=== PATIENT | female | born 1960 ===

== ENCOUNTER 2019-11-30 11:13 | Emergency (ER) | payer SELFPAY ==
[2019-11-30 12:15] LABS: Absolute Lymphocytes (CBC) 2.6 K/uL (0.7-4.9); Basophils % 0.3 % (0-1.3); Hematocrit 37.3 % (36.0-45.0); Lymphocytes % 21.5 % (15.3-44.8); MPV 7.1 fL (7.6-11.3); RBC Red Blood Cell Count 4.27 M/uL (3.86-4.86)
[2019-11-30 12:19] LABS: Protime INR 1.04
[2019-11-30 12:45] LABS: Barbiturates NEGATIVE (NEGATIVE); Benzodiazepines NEGATIVE (NEGATIVE); Cocaine NEGATIVE (NEGATIVE); METHAMPHETAM NEGATIVE (NEGATIVE); Methadone NEGATIVE (NEGATIVE); Opiates NEGATIVE (NEGATIVE); Phencyclidine NEGATIVE (NEGATIVE); THC Cannibis NEGATIVE (NEGATIVE)
[2019-11-30 13:14] LABS: ALT/SGPT 21 U/L (12-78); AST/SGOT 14 U/L (15-37); Albumin 3.4 g/dL (3.4-5.0); Alkaline Phosphatase 82 U/L (45-117); BUN Blood Urea Nitrogen 8 mg/dL (7-18); Bicarbonate 26 mmol/L (21-32); Bilirubin Direct 0.1 mg/dL (0-0.2); Bilirubin Total 0.3 mg/dL (0.2-1.0); Glucose Level 97 mg/dL (74-106); Potassium 3.4 mmol/L (3.5-5.1); Protein, Total 7.3 g/dL (6.4-8.2); Sodium Level 138 mmol/L (136-145)
[2019-11-30 13:41] LABS: Urine Blood NEGATIVE (NEG); Urine Glucose NEGATIVE (NEG); Urine Protein NEGATIVE (NEG); Urine pH 5.5 (5.0-7.0)
--- NOTE | 2019-11-30 14:49 | ER ---
Nurse's Notes [facility] Name: Lindy Sweeney Age: 59 yrs Sex: Female : 1960 Arrival Date: 11/30/2019 Time: :18 Bed 16 Private MD: Diagnosis: Suicidal ideations Presentation: 11/30 11:34 Presenting complaint: Patient states: is thinking of killing herself since last night, iw plan is to hang herself, is currently at [facility] for Xanax abuse, stopped taking xanax on Oct 16, 2019 , previously was taking Suboxone and took herself off in September. Her mother dies in September, dog in Oct, states she has a lot of overwhelming personal problems and she can;t use the phone or computer while she's at [facility], feels frustrated, states she was recently at [facility] and crisis center for 5 days in Oct for SI. Transition of care: patient was not received from another setting of care. Onset of symptoms was November 29, 2019. Risk Assessment: Do you want to hurt yourself or someone else? Patient reports no desire to harm self or others. Initial Sepsis Screen: Does the patient meet any 2 criteria? No. Patient's initial sepsis screen is negative. Does the patient have a suspected source of infection? No. Patient's initial sepsis screen is negative. Care prior to arrival: None. 11:34 Method Of Arrival: Ambulatory iw 11:34 Acuity: MILLICENT 2 iw Triage Assessment: 12/02 07:00 General: Appears in no apparent distress. distressed, Behavior is calm, cooperative. bp Historical: - Allergies: 11/30 11:42 PENICILLINS; iw - Home Meds: 11:42 amitriptyline 50 mg Oral tab nightly [Active]; bupropion HCl 150 mg Oral TbER 1 tab iw once daily [Active]; Benadryl 50 mg Oral nightly [Active]; lisinopril 20 mg Oral tab 1 tab once daily [Active]; - PMHx: 11:42 None; iw - PSHx: 11:42 ; Cholecystectomy; iw - Immunization history:: Adult Immunizations not up to date. - Coronavirus screen:: The patient has NOT traveled to [place] in the past 14 days. Proceed with normal triage process as indicated. - Social history:: Smoking status: Patient denies any tobacco usage or history of. Patient/guardian denies using alcohol. - Family history:: not pertinent. - Ebola Screening: : Patient negative for fever greater than or equal to 101.5 degrees Fahrenheit, and additional compatible Ebola Virus Disease symptoms Patient denies exposure to infectious person Patient denies travel to an Ebola-affected area in the 21 days before illness onset No symptoms or risks identified at this time. - Hospitalizations: : No recent hospitalization is reported. Screenin:49 Abuse screen: Denies threats or abuse. Denies injuries from another. Nutritional ph screening: No deficits noted. Tuberculosis screening: No symptoms or risk factors identified. Fall Risk None identified. Assessment: 12:00 General: Appears in no apparent distress. comfortable, Behavior is cooperative, ph appropriate for age, anxious. Pain: Denies pain. Neuro: Level of Consciousness is awake, alert, obeys commands, Oriented to person, place, time, situation. Cardiovascular: Capillary refill < 3 seconds in bilateral fingers Patient's skin is warm and dry. Respiratory: Reports cough that is Airway is patent Respiratory effort is even, unlabored, Respiratory pattern is regular, symmetrical, Breath sounds are clear bilaterally. GI: No signs and/or symptoms were reported involving the gastrointestinal system. Derm: Skin is intact, Skin is pink, warm \\T\\ dry. 13:00 Reassessment: Patient appears in no apparent distress at this time. Patient and/or ph family updated on plan of care and expected duration. Pain level reassessed. Patient is alert, oriented x 3, equal unlabored respirations, skin warm/dry/pink. 14:00 Reassessment: Patient appears in no apparent distress at this time. Patient and/or ph family updated on plan of care and expected duration. Pain level reassessed. Patient is alert, oriented x 3, equal unlabored respirations, skin warm/dry/pink. 15:31 Reassessment: belongings list verified with PJ, belongings sent with security. iw 15:48 Reassessment: [facility] screener at bedside to speak w/ pt. ph 17:00 Reassessment: Patient appears in no apparent distress at this time. Patient and/or ph family updated on plan of care and expected duration. Pain level reassessed. Patient is alert, oriented x 3, equal unlabored respirations, skin warm/dry/pink. 18:00 Reassessment: Patient appears in no apparent distress at this time. Patient and/or ph family updated on plan of care and expected duration. Pain level reassessed. Patient is alert, oriented x 3, equal unlabored respirations, skin warm/dry/pink. 12/01 03:00 Reassessment: Patient appears in no apparent distress at this time. Patient and/or wh family updated on plan of care and expected duration. Pain level reassessed. Patient is alert, oriented x 3, equal unlabored respirations, skin warm/dry/pink. Pt sleeping well no signs of distress noted. 07:00 Reassessment: pt appears to be sleeping at this time. tw2 08:33 Reassessment: Patient is alert, oriented x 3, equal unlabored respirations, skin tw2 warm/dry/pink. pt sitting up eating breakfast at this time.,NAD. 09:00 Reassessment: Patient appears in no apparent distress at this time. Patient and/or tw2 family updated on plan of care and expected duration. Pain level reassessed. Patient is alert, oriented x 3, equal unlabored respirations, skin warm/dry/pink. 10:00 Reassessment: Patient appears in no apparent distress at this time. Patient and/or tw2 family updated on plan of care and expected duration. Pain level reassessed. Patient is alert, oriented x 3, equal unlabored respirations, skin warm/dry/pink. 11:00 Reassessment: Patient appears in no apparent distress at this time. Patient and/or tw2 family updated on plan of care and expected duration. Pain level reassessed. Patient is alert, oriented x 3, equal unlabored respirations, skin warm/dry/pink. 12:00 Reassessment: Patient appears in no apparent distress at this time. Patient and/or tw2 family updated on plan of care and expected duration. Pain level reassessed. Patient is alert, oriented x 3, equal unlabored respirations, skin warm/dry/pink. 13:00 Reassessment: Patient appears in no apparent distress at this time. Patient and/or tw2 family updated on plan of care and expected duration. Pain level reassessed. Patient is alert, oriented x 3, equal unlabored respirations, skin warm/dry/pink. 14:00 Reassessment: Patient appears in no apparent distress at this time. Patient and/or tw2 family updated on plan of care and expected duration. Pain level reassessed. Patient is alert, oriented x 3, equal unlabored respirations, skin warm/dry/pink. 15:00 Reassessment: Patient appears in no apparent distress at this time. Patient and/or jl7 family updated on plan of care and expected duration. Pain level reassessed. Patient is alert, oriented x 3, equal unlabored respirations, skin warm/dry/pink. Pt reports coughing for 10 days, "I think I got it from my roommate." requesting something for the cough, ERD notified, see MAR for orders Patient denies pain at this time. 16:00 Reassessment: Patient appears in no apparent distress at this time. Patient and/or jl7 family updated on plan of care and expected duration. Pain level reassessed. Patient is alert, oriented x 3, equal unlabored respirations, skin warm/dry/pink. Patient states feeling better. 17:00 Reassessment: Patient appears in no apparent distress at this time. No changes from jl7 previously documented assessment. Patient and/or family updated on plan of care and expected duration. Pain level reassessed. Patient is alert, oriented x 3, equal unlabored respirations, skin warm/dry/pink. 19:10 General: Appears in no apparent distress. comfortable, Behavior is calm, cooperative, rr5 appropriate for age, presence of sitter noted. awaiting for mental facility acceptance.. Pain: Denies pain. Neuro: Level of Consciousness is awake, alert, obeys commands, Oriented to person, place, time, situation. Cardiovascular: Capillary refill < 3 seconds Patient's skin is warm and dry. Respiratory: Airway is patent Respiratory effort is even, unlabored, Respiratory pattern is regular, symmetrical. GI: No signs and/or symptoms were reported involving the gastrointestinal system. : No signs and/or symptoms were reported regarding the genitourinary system. EENT: No signs and/or symptoms were reported regarding the EENT system. Derm: Skin is intact, Skin is pink, warm \\T\\ dry. Musculoskeletal: Circulation, motion, and sensation intact. Capillary refill < 3 seconds. 20:00 Reassessment: Patient appears in no apparent distress at this time. Patient is alert, rr5 oriented x 3, equal unlabored respirations, skin warm/dry/pink. complaining of nausea, ED provider aware with order made and carried out. 21:00 Reassessment: Patient appears in no apparent distress at this time. Patient is alert, rr5 oriented x 3, equal unlabored respirations, skin warm/dry/pink. Patient states feeling better. Patient states symptoms have improved. 23:00 Reassessment: Patient appears in no apparent distress at this time. No changes from rr5 previously documented assessment. 12/02 00:00 Reassessment: Patient appears in no apparent distress at this time. resting eyes closed rr5 breathing spontaneously at room air. 02:41 Reassessment: Patient appears in no apparent distress at this time. No changes from rr5 previously documented assessment. 04:00 Reassessment: Patient appears in no apparent distress at this time. No changes from wh previously documented assessment. Patient and/or family updated on plan of care and expected duration. Pain level reassessed. Patient is alert, oriented x 3, equal unlabored respirations, skin warm/dry/pink. Pt sleeping well no signs of distress noted. 06:00 Reassessment: Patient appears in no apparent distress at this time. No changes from wh previously documented assessment. Patient and/or family updated on plan of care and expected duration. Pain level reassessed. Patient is alert, oriented x 3, equal unlabored respirations, skin warm/dry/pink. 07:00 Reassessment: RECD REPORT FROM AMINATA STEWART. 59YO WF P/W SUICIDAL IDEATION 2/2 DETOX FROM bp [facility] AT [facility]. PT MEDICALLY CLEARED, PSYCH TRANSFER INITIATED. 09:17 Reassessment: PT PROVIDED BREAKFAST TRAY BUT DECLINING TO EAT AT THIS TIME. bp 10:55 Reassessment: PSYCH MD AT B/S. bp 13:00 Reassessment: PT PROVIDED LUNCH. INPATIENT TRANSFER IN PROCESS. bp 17:00 Reassessment: PER [facility], PLACEMENT POSSIBLE TOMORROW. PT CALM AND COOPERATIVE, EATING bp DINNER. 19:55 General: Appears in no apparent distress. comfortable, Behavior is calm, cooperative, fu appropriate for age, awaiting acceptance to psychiatric facilty. Pain: Denies pain. Neuro: Level of Consciousness is awake, alert, obeys commands, Oriented to person, place, time, situation. Cardiovascular: Capillary refill < 3 seconds Patient's skin is warm and dry. Respiratory: Reports cough that is Respiratory effort is even, unlabored, Respiratory pattern is regular, Breath sounds are clear bilaterally. GI: Reports nausea. : No signs and/or symptoms were reported regarding the genitourinary system. EENT: No signs and/or symptoms were reported regarding the EENT system. Derm: Skin is intact, Skin is pink, warm \\T\\ dry. Musculoskeletal: Capillary refill < 3 seconds. 20:10 Reassessment: Patient complaining of nausea, Dr. Hagan notified. fu 21:29 Reassessment: Patient refuse to take Zofran and Seroquel. notified. fu 22:08 Reassessment: patient asked for snacks, seems upset for not able to get Phenergan for fu nausea. 22:58 Reassessment: Patient appears in no apparent distress at this time. Patient is alert, fu oriented x 3, equal unlabored respirations, skin warm/dry/pink. awake lying in bed. 23:09 Reassessment: Reassessment: Patient and/or family updated on plan of care and expected fu duration. Pain level reassessed. Patient is alert, oriented x 3, equal unlabored respirations, skin warm/dry/pink. patient resting in bed, quite and calm. 12/03 00:01 Reassessment: No changes from previously documented assessment. Patient and/or family fu updated on plan of care and expected duration. Pain level reassessed. Patient is alert, oriented x 3, equal unlabored respirations, skin warm/dry/pink. 01:40 Reassessment: No changes from previously documented assessment. patient resting in bed fu quietly, eyes close, seems asleep. 02:48 Reassessment: Patient appears in no apparent distress at this time. No changes from fu previously documented assessment. 03:48 Reassessment: Patient appears in no apparent distress at this time. Sitter at bedside. lp1 Nurse to Nurse report given to TERRY Fournier at [facility]. 04:43 Reassessment: No changes from previously documented assessment. Patient and/or family fu updated on plan of care and expected duration. Pain level reassessed. Patient is alert, oriented x 3, equal unlabored respirations, skin warm/dry/pink. 05:29 Reassessment: Patient appears in no apparent distress at this time. Reassessment: lp1 Patient aware of transfer to [facility], transfer consent signed by patient; Patient concerned about jacket and some other clothing left at [facility], will attempt to call for update on patient's belongings. General: Behavior is calm, cooperative. 05:31 Reassessment: Spoke with staff member at [facility], states he will see what he can do lp1 about getting patient's belonging to her. 06:47 Reassessment: EMS at bedside for transfer. Reassessment: [facility] staff arrived lp1 with patient's belongings. security at bedside to return patient belongings. Psych: 11/30 12:30 Subjective: Patient's mood is sad, hopeless, Delusions are denied, Hallucinations are ph denied Having thoughts of suicide. Objective: Patient is cooperative, Speech is normal, Affect is appropriate. Interventions: Removed personal items and placed in bag. Patient placed in hospital gown. Searched person for dangerous items. Urine collected and sent for urine drug test. Belonging list filled out. Suicide Risk Assessment: Sad Person Scale: Sex of patient: Female: Score 0 points. Age of patient: Score 0 point if patient falls outside of specified age parameters. Depression: Score 1 point if signs of depression are present. Previous Attempt: Score 1 point if patient has previously attempted suicide. Substance Abuse: Score 0 point if patient does not abuse alcohol or drugs. Rational Thinking: Score 0 point if patient has rational thinking. Social Support: Score 1 point if social support is lacking and/or unavailable. Organized Plan: Score 1 point if patient had a plan in place. Relationship: Score 1 point if patient is , , , or for a single male Chronic Sickness: Score 0 point if patient does not have a chronic illness, debilitating, or severe disorder. TOTAL POINTS: If total points are 5-6, proposed clinical action is to strongly consider hospitalization, depending upon confidence in the follow-up arrangement. Implement suicide precautions. Safety Checks: Personal items have been removed. Door is open. No visitors are present at this time. Pt denies substance abuse. Commitment: Patient will be a voluntary commitment. Vital Signs: 11:42 Weight 65.32 kg; Height 5 ft. 2 in. (157.48 cm); Pain 7/10; iw 11:49 BP 134 / 94; Pulse 89; Resp 16; Temp 98.3(O); Pulse Ox 98% on R/A; ph 20:18 BP 127 / 82; Pulse 74; Resp 16; Pulse Ox 97% on R/A; mt 12/01 06:21 BP 140 / 86; Pulse 77; Resp 16; Temp 98.4(O); Pulse Ox 98% on R/A; mt 17:18 BP 112 / 79; Pulse 81; Resp 16; Temp 98.2(TE); Pulse Ox 97% on R/A; mh5 12/02 06:05 BP 115 / 75 RA; Pulse 83 RA; Resp 16; Pulse Ox 95% on R/A; cs8 10:34 BP 109 / 65 RA Supine; Pulse 76; Resp 16; Temp 98.7(O); Pulse Ox 96% on R/A; bp 14:00 BP 111 / 72; Pulse 73; Resp 17; Temp 98.5; Pulse Ox 95% ; bp 18:00 BP 121 / 81; Pulse 69; Resp 17; Temp 98.5; Pulse Ox 96% ; bp 20:20 BP 132 / 79; Pulse 75; Resp 16; Temp 99.3(O); Pulse Ox 97% on R/A; Pain 0/10; fu 12/03 04:44 BP 138 / 87; Pulse 84; Resp 18; Temp 98.2(O); Pulse Ox 97% on R/A; Pain 0/10; fu 11/30 11:42 Body Mass Index 26.34 (65.32 kg, 157.48 cm) iw ED Course: 11/30 11:18 Patient arrived in ED. ag5 11:25 Dwaine Benitez MD is Attending Physician. rn 11:39 Triage completed. iw 11:42 Arm band placed on. iw 11:47 Maryanne Jane, TERRY is Primary Nurse. ph 12:01 EKG done, by pharmacy technician infusion. reviewed by Dwaine Benitez MD. at1 12:15 Inserted saline lock: 22 gauge in left antecubital area, using aseptic technique. ph 14:[address] [facility] psych center. dh4 14:[address] [facility] for screener evaluation for pt. dh4 14:26 faxed chart to [facility] ,[facility], [facility]. 14:[address] [facility]. bd 16:14 faxed [facility] evaluation to [facility]. pt is currently on waiting list at [facility]. 19:04 Taya Jesus FNP-C is PHCP. snw 19:29 No provider procedures requiring assistance completed. ph 19:32 Patient has correct armband on for positive identification. Placed in gown. Bed in low ph position. Call light in reach. Side rails up X 1. Pulse ox on. NIBP on. Lights dimmed. Warm blanket given. Pillow given. 12/01 07:04 Primary Nurse role handed off by Maryanne Jane, TERRY tw2 07:04 Laly Goncalves, TERRY is Primary Nurse. tw2 08:30 Diet: Patient given a regular meal tray. 5 09:[address]ne [address] [facility], they have no beds at this time. bd 10:41 talked to Maryanne at [facility], pt is still on waiting list, no [facility] beds, no discharges expected until tomorrow. 11:30 Diet: Patient given a regular meal tray. mh5 15:13 Diet: Patient given ice chips. Patient given juice. mh5 16:30 Diet: Patient given a regular meal tray. 5 17:26 Basic Metabolic Panel Sent. jl7 17:26 Acetaminophen Sent. jl7 19:00 Safety Checks: Personal items have been removed. The door is open or patient has been rr5 placed in a hallway bed/chair. Sitter present at this time. 19:00 Safety checks: Items removed: Door open/sign placed on door: Sitter present: Yes. cs8 19:15 Safety checks: Items removed: Door open/sign placed on door: yes. Sitter present: Yes. cs8 Bed in low position. 19:30 Safety checks: Items removed: Door open/sign placed on door: yes. Sitter present: Yes. cs8 19:45 Safety checks: Items removed: yes. Door open/sign placed on door: yes. Sitter present: cs8 Yes. Bed in low position. 20:00 Safety checks: Items removed: yes. Door open/sign placed on door: yes. Sitter present: cs8 Yes. 20:15 Safety checks: Items removed: yes. Door open/sign placed on door: yes. Sitter present: cs8 Yes. 20:30 Safety checks: Items removed: yes. Door open/sign placed on door: yes. Sitter present: cs8 Yes. 20:45 Safety checks: Items removed: yes. Door open/sign placed on door: yes. Sitter present: cs8 Yes. 21:00 Safety checks: Items removed: yes. Door open/sign placed on door: yes. Sitter present: cs8 Yes. 21:15 Safety checks: Items removed: yes. Door open/sign placed on door: yes. Family/friend cs8 present: no. Sitter present: Yes. 21:30 Safety checks: Items removed: yes. Door open/sign placed on door: yes. Family/friend cs8 present: no. Sitter present: Yes. 21:45 Safety checks: Items removed: yes. Door open/sign placed on door: yes. Family/friend cs8 present: no. Sitter present: Yes. 22:00 Safety checks: Items removed: yes. Door open/sign placed on door: yes. Family/friend cs8 present: no. Sitter present: Yes. 22:15 Safety checks: Items removed: yes. Door open/sign placed on door: yes. Family/friend cs8 present: no. Sitter present: Yes. 22:30 Safety checks: Items removed: yes. Door open/sign placed on door: yes. Family/friend cs8 present: no. Sitter present: Yes. 22:45 Safety checks: Items removed: yes. Door open/sign placed on door: yes. Family/friend cs8 present: no. Sitter present: Yes. 23:00 Safety checks: Items removed: yes. Door open/sign placed on door: yes. Sitter present: cs8 Yes. 23:15 Safety checks: Items removed: yes. Door open/sign placed on door: yes. Sitter present: cs8 Yes. 23:30 Safety checks: Items removed: yes. Door open/sign placed on door: yes. Sitter present: cs8 Yes. 23:45 Safety checks: Items removed: yes. Door open/sign placed on door: yes. Sitter present: cs8 Yes. 12/02 00:00 Safety checks: Items removed: yes. Door open/sign placed on door: yes. Sitter present: cs8 Yes. 00:15 Safety checks: Items removed: yes. Door open/sign placed on door: yes. Sitter present: cs8 Yes. 00:30 Safety checks: Items removed: yes. Door open/sign placed on door: yes. Sitter present: cs8 Yes. 00:45 Safety checks: Items removed: yes. Door open/sign placed on door: yes. Sitter present: cs8 Yes. 01:00 Safety checks: Items removed: yes. Door open/sign placed on door: yes. Sitter present: cs8 Yes. 01:15 Safety checks: Items removed: yes. Door open/sign placed on door: yes. Sitter present: cs8 Yes. 01:30 Safety checks: Items removed: yes. Door open/sign placed on door: yes. Sitter present: cs8 Yes. 01:45 Safety checks: Items removed: yes. Door open/sign placed on door: yes. Sitter present: cs8 Yes. 02:00 Safety checks: Items removed: yes. Door open/sign placed on door: yes. Sitter present: cs8 Yes. 02:00 Safety checks: Items removed: yes. Door open/sign placed on door: yes. Family/friend cs8 present: no. 02:15 Safety checks: Items removed: yes. Door open/sign placed on door: yes. Sitter present: cs8 Yes. 02:30 Safety checks: Items removed: yes. Door open/sign placed on door: yes. Sitter present: cs8 Yes. 02:45 Safety checks: Items removed: yes. Door open/sign placed on door: yes. Sitter present: cs8 Yes. 03:00 Safety checks: Items removed: yes. Door open/sign placed on door: yes. Sitter present: cs8 Yes. 03:15 Safety checks: Items removed: yes. Door open/sign placed on door: yes. Sitter present: cs8 Yes. 03:30 Safety checks: Items removed: yes. Door open/sign placed on door: yes. Sitter present: cs8 Yes. 04:00 Safety checks: Items removed: Door open/sign placed on door: Sitter present: Yes. cs8 04:15 Safety checks: Door open/sign placed on door: yes. Sitter present: Yes. cs8 04:30 Safety checks: Items removed: yes. Door open/sign placed on door: yes. Sitter present: cs8 Yes. 05:00 Safety checks: Items removed: yes. Door open/sign placed on door: yes. Sitter present: cs8 Yes. Side rails up X 1. 05:15 Safety checks: Items removed: yes. Door open/sign placed on door: yes. Sitter present: cs8 Yes. Side rails up X 1. 05:30 Safety checks: Items removed: yes. Door open/sign placed on door: yes. Sitter present: cs8 Yes. Side rails up X 1. 05:45 Safety checks: Items removed: yes. Door open/sign placed on door: yes. Sitter present: cs8 Yes. Side rails up X 1. 06:00 Safety checks: Items removed: yes. Door open/sign placed on door: yes. Sitter present: cs8 Yes. Side rails up X 1. 06:15 Safety checks: Items removed: yes. Door open/sign placed on door: yes. Sitter present: cs8 Yes. 06:30 Safety checks: Items removed: yes. Door open/sign placed on door: yes. Sitter present: cs8 Yes. Side rails up X 1. 06:45 Safety checks: Items removed: yes. Door open/sign placed on door: yes. Sitter present: cs8 Yes. 06:59 Primary Nurse role handed off by Laly Goncalves, RN bp 06:59 Hussein Shrestha, RN is Primary Nurse. bp 07:36 re-faxed patient chart to the following facilities in the attempt to transfer; [facility], [facility], [facility], [facility], [facility], [facility] , [facility], [facility] [place], [facility], [facility] and [facility]. 09:49 Attending Physician role handed off by Dwaine Benitez MD kdr 09:49 Izaiah Sanders MD is Attending Physician. kdr 09:[address] Andres Pompa with Dr. Sanders for patient consultation. dh4 10:52 Dr. Andres Pompa here to evaluate the patient. dh4 11:15 Doc to Doc from [facility]. Connected Omi Etienne. dh4 17:06 Diet: Patient given a regular meal tray. dh3 20:02 Bed in low position. Call light in reach. Side rails up X 1. Diet: Patient given ice fu chips. Patient given water. 20:04 Safety Checks: Personal items have been removed. The door is open or patient has been fu placed in a hallway bed/chair. Sitter present at this time. 20:05 Primary Nurse role handed off by Hussein Shrestha RN fu 20:05 Dung [place], TERRY is Primary Nurse. fu 20:49 Attending Physician role handed off by Izaiah Sanders MD ps1 20:49 Jerrell Hagan MD is Attending Physician. ps1 22:07 Diet: Patient given snack. Tolerated well. fu 23:09 Lights dimmed. fu 12/03 06:50 IV discontinued, bleeding controlled, Pressure dressing applied. fu Administered Medications: 11/30 19:34 Drug: ZyrTEC - Cetirizine 10 mg Route: PO; sg 12/02 07:12 Follow up: Response: No adverse reaction bp 11/30 20:40 Drug: Phenergan 25 mg Route: PO; sg 12/02 07:12 Follow up: Response: No adverse reaction bp 12/01 15:41 Drug: Tussionex Pennkinetic ER 5 ml Route: PO; jl7 16:00 Follow up: Response: No adverse reaction; Marked relief of symptoms jl7 20:08 Drug: Phenergan 25 mg Route: PO; rr5 21:10 Follow up: Response: No adverse reaction; Marked relief of symptoms rr5 12/02 10:26 Drug: Tussionex Pennkinetic ER 5 ml Route: PO; bp 17:00 Drug: Tussionex Pennkinetic ER 5 ml Route: PO; bp 19:30 Follow up: Response: No change in condition fu 12/03 00:16 Not Given (Patient Refused): Zofran 4 mg PO once rv 00:16 Not Given (Patient Refused): SEROquel 100 mg PO once rv Outcome: 11/30 14:47 ER care complete, transfer ordered by MD. stewart 12/03 06:53 Transferred by ground EMS to other acute care facility: [facility] Condition: stable Instructed on the need for transfer. 06:53 Patient left the ED. lp1 Signatures: Paola Sanon Steven, RN RN Izaiah Sanders MD MD [facility] Edin, Taya, AWNINGS MECHANIC-C AWNINGS MECHANIC-Csnw Beverley Minaya, RN RN iw Dwaine Benitez MD MD rn Pena, Laura, RN RN lp1 Clarisa Rapp, solar designer/installer EKG Tat1 Maryanne Jane, RN RN Goncalves, Laly, RN RN 2 Matias, Cori [facility] Stephen Ramirez, RN RN 7 [facility] Aminata [address] [facility], Dung, RN RN Henrietta, Hussein, RN RN bp Jerrell Hagan MD MD [facility] Bridgette Farmer Christina 8 Akil Bennett, RN RN 5 Ladi, Kathy [facility] Diogo Carlos [facility] Jag Fry RN rv Corrections: (The following items were deleted from the chart) 12/02 06:07 05:00 BP 115 / 75 R Arm; Pulse 83bpm; Right ArmResp 16bpm; Pulse Ox 95% RA; cs8 cs8 12/03 00:01 12/02 23:09 Reassessment: [facility], [place]
--- NOTE | 2019-11-30 14:50 | EDPHYS ---
Physician Documentation [facility] Name: Lindy Sweeney Age: 59 yrs Sex: Female : 1960 Arrival Date: 11/30/2019 Time: 11:18 Bed 16 Private MD: ED Physician Jerrell Hagan HPI: 11/30 11:40 This 59 yrs old Unknown Female presents to ER via Ambulatory with complaints of rn Suicidal Ideation. 11:40 The patient presents to the emergency department with depression, suicide ideation. rn Onset: The symptoms/episode began/occurred at an unknown time. Severity of symptoms: At their worst the symptoms were moderate in the emergency department the symptoms are unchanged. The patient has experienced similar episodes in the past. Reports recently admitted at [facility] for depression and suicidal ideations, started on wellbutrin, reports currently at [facility] for drug dependence, and has been feeling suicidal. Plan is to hang herself. Not homicidal. No ingestion. Reports overwhelmed with of family member and her dog recently. And is 1 year anniversary of of fiance. No hallucinations. . Historical: - Allergies: 11:42 PENICILLINS; iw - Home Meds: 11:42 amitriptyline 50 mg Oral tab nightly [Active]; bupropion HCl 150 mg Oral TbER 1 tab iw once daily [Active]; Benadryl 50 mg Oral nightly [Active]; lisinopril 20 mg Oral tab 1 tab once daily [Active]; - PMHx: 11:42 None; iw - PSHx: 11:42 ; Cholecystectomy; iw - Immunization history:: Adult Immunizations not up to date. - Coronavirus screen:: The patient has NOT traveled to [place] in the past 14 days. Proceed with normal triage process as indicated. - Social history:: Smoking status: Patient denies any tobacco usage or history of. Patient/guardian denies using alcohol. - Family history:: not pertinent. - Ebola Screening: : Patient negative for fever greater than or equal to 101.5 degrees Fahrenheit, and additional compatible Ebola Virus Disease symptoms Patient denies exposure to infectious person Patient denies travel to an Ebola-affected area in the 21 days before illness onset No symptoms or risks identified at this time. - Hospitalizations: : No recent hospitalization is reported. ROS: 11:46 Constitutional: Negative for fever, chills, and weight loss, Eyes: Negative for injury, rn pain, redness, and discharge, Neck: Negative for injury, pain, and swelling, Cardiovascular: Negative for chest pain, palpitations, and edema, Respiratory: Negative for shortness of breath, wheezing, and pleuritic chest pain, Abdomen/GI: Negative for abdominal pain, nausea, vomiting, diarrhea, and constipation, MS/Extremity: Negative for injury and deformity, Skin: Negative for injury, rash, and discoloration, Neuro: Negative for headache, weakness, numbness, tingling, and seizure, Psych: + depression and suicidal ideations, negative for homicidal ideation Exam: 11:46 Constitutional: This is a well developed, well nourished patient who is awake, alert, rn tearful, ambulatory to room without difficulty, cooperative. Head/Face: Normocephalic, atraumatic. ENT: MMM Cardiovascular: Regular rate and rhythm. No pulse deficits. Respiratory: Speaking full sentences. No increased work of breathing, no retractions or nasal flaring. Skin: Warm, dry MS/ Extremity: Pulses equal, no cyanosis. Neurovascular intact. Full, normal range of motion. Equal circumference. Neuro: Awake and alert, GCS 15, oriented to person, place, time, and situation. Cranial nerves II-XII grossly intact. Motor strength 5/5 in all extremities. Sensory grossly intact. Cerebellar exam normal. Normal gait. Vital Signs: 11:42 Weight 65.32 kg; Height 5 ft. 2 in. (157.48 cm); Pain 7/10; iw 11:49 BP 134 / 94; Pulse 89; Resp 16; Temp 98.3(O); Pulse Ox 98% on R/A; ph 20:18 BP 127 / 82; Pulse 74; Resp 16; Pulse Ox 97% on R/A; mt 12/01 06:21 BP 140 / 86; Pulse 77; Resp 16; Temp 98.4(O); Pulse Ox 98% on R/A; mt 17:18 BP 112 / 79; Pulse 81; Resp 16; Temp 98.2(TE); Pulse Ox 97% on R/A; mh5 12/02 06:05 BP 115 / 75 RA; Pulse 83 RA; Resp 16; Pulse Ox 95% on R/A; cs8 10:34 BP 109 / 65 RA Supine; Pulse 76; Resp 16; Temp 98.7(O); Pulse Ox 96% on R/A; bp 14:00 BP 111 / 72; Pulse 73; Resp 17; Temp 98.5; Pulse Ox 95% ; bp 18:00 BP 121 / 81; Pulse 69; Resp 17; Temp 98.5; Pulse Ox 96% ; bp 20:20 BP 132 / 79; Pulse 75; Resp 16; Temp 99.3(O); Pulse Ox 97% on R/A; Pain 0/10; fu 12/03 04:44 BP 138 / 87; Pulse 84; Resp 18; Temp 98.2(O); Pulse Ox 97% on R/A; Pain 0/10; fu 11/30 11:42 Body Mass Index 26.34 (65.32 kg, 157.48 cm) iw MDM: 11/30 11:25 Patient medically screened. rn 14:46 Differential diagnosis: depression, suicidal ideation. Data reviewed: vital signs, rn nurses notes, lab test result(s), EKG, and as a result, I will admit patient. Counseling: I had a detailed discussion with the patient and/or guardian regarding: the historical points, exam findings, and any diagnostic results supporting the discharge/admit diagnosis, lab results, the need to transfer to another facility. Special discussion:. ED course: Pt pending transfer for suicidal ideation, is medically cleared. 18:30 ED course: Evaluated by [facility], who recommended inpatient transfer. rn Pending transfer. . 12/01 00:51 ED course: Pt continues sleeping in no distress. snw 07:02 ED course: Pt resting comfortably, still pending psychiatric transfer. rn 18:57 Transition of care: After a detail discussion of the patient's case, care is rn transferred to Ashish Medina MD. 12/02 07:08 ED course: Pt currently sleeping. All VSS currently awaiting transfer. Pt has no tw4 complaints. . 11:19 ED course: Doc to doc given to ZIYAD George at [facility].. kdr 16:10 ED course: The patient continues to rest comfortably and has not required any further kdr intervention. 18:37 ED course: The patient continues to rest comfortably and not require further kdr intervention. The patient may have a bed at [facility] in the morning. 20:50 ED course: Assumed care from Dr. Sanders at shift change. Pending bed at [facility]. Patient ps1 has intermittent nausea. Zofran ordered as well as seroquel for sleep. Stable otherwise. . 11/30 11:40 Order name: Acetaminophen 11/30 11:40 Order name: Basic Metabolic Panel 11/30 11:40 Order name: CBC with Diff; Complete Time: 13:27 11/30 11:40 Order name: ETOH Level; Complete Time: 13:27 11/30 11:40 Order name: Hepatic Function; Complete Time: 13:27 11/30 11:40 Order name: PT-INR; Complete Time: 13:27 11/30 11:40 Order name: Ptt, Activated; Complete Time: 13: 11/30 11:40 Order name: Salicylate; Complete Time: 13:27 11/30 11:40 Order name: Urine Drug Screen; Complete Time: 13:27 11/30 11:42 Order name: Acetaminophen Level; Complete Time: 13:27 [facility] 11/30 11:42 Order name: Basic Metabolic Panel; Complete Time: 13:27 [facility] 11/30 11:54 Order name: Urine Dipstick--Ancillary (enter results) 11/30 11:40 Order name: EKG; Complete Time: 11:43 11/30 11:40 Order name: EKG - Nurse/Tech; Complete Time: 07:04 11/30 11:40 Order name: IV Saline Lock; Complete Time: 13:12 11/30 14:40 Order name: Diet Finger Food; Complete Time: 14:41 12/01 07:16 Order name: Diet Regular; Complete Time: 07:17 [facility] 12/01 10:11 Order name: Diet Regular; Complete Time: 10:12 [facility] 12/01 17:53 Order name: Diet Regular; Complete Time: 17:54 12/02 07:27 Order name: Diet Regular; Complete Time: 07:27 [facility] 12/02 12:41 Order name: Diet Regular; Complete Time: 12:41 [facility] 12/02 16:21 Order name: Diet Regular; Complete Time: 16:21 [facility] 11/30 11:40 Order name: Labs collected and sent; Complete Time: 11:48 11/30 11:40 Order name: Urine Dipstick-Ancillary (obtain specimen); Complete Time: 11:49 rn Administered Medications: 11/30 19:34 Drug: ZyrTEC - Cetirizine 10 mg Route: PO; sg 12/02 07:12 Follow up: Response: No adverse reaction bp 11/30 20:40 Drug: Phenergan 25 mg Route: PO; sg 12/02 07:12 Follow up: Response: No adverse reaction bp 12/01 15:41 Drug: Tussionex Pennkinetic ER 5 ml Route: PO; jl7 16:00 Follow up: Response: No adverse reaction; Marked relief of symptoms jl7 20:08 Drug: Phenergan 25 mg Route: PO; rr5 21:10 Follow up: Response: No adverse reaction; Marked relief of symptoms rr5 12/02 10:26 Drug: Tussionex Pennkinetic ER 5 ml Route: PO; bp 17:00 Drug: Tussionex Pennkinetic ER 5 ml Route: PO; bp 19:30 Follow up: Response: No change in condition 12/03 00:16 Not Given (Patient Refused): Zofran 4 mg PO once rv 00:16 Not Given (Patient Refused): SEROquel 100 mg PO once rv Disposition: 12/01 18:56 Co-signature as Attending Physician, Dwaine Benitez MD. rn Disposition: 11/30/19 14:47 Transfer ordered to [facility]. Diagnosis is Suicidal ideations. - Reason for transfer: Higher level of care. - Accepting physician is . - Condition is Stable. - Problem is new. - Symptoms are unchanged. Signatures: Dispatcher [employer] EDFranklin Meeks RN RN sg Izaiah Sanders MD MD kdr Therrien, Shelly, SUPERVISOR EXTRUDING DEPARTMENT-C SUPERVISOR EXTRUDING DEPARTMENT-Csnw Beverley Minaya, RN TERRY iw Dwaine Benitez MD MD rn Pena, Laura RN RN lp1 Stephen Ramirez RN RN jl7 Hussein Shrestha RN RN bp Jerrell Hagan MD MD ps1 Wadley, Terrence, MD MD tw4 Akil Bennett RN RN rr5 Dung [place] RN Jag Fry RN rv Corrections: (The following items were deleted from the chart) 12/03 04:35 11/30 14:47 11/30/2019 14:47 Transfer ordered to Psych Facility. Diagnosis is Suicidal ps1 ideations. Reason for transfer: Higher level of care. Accepting physician is . Condition is Stable. Problem is new. Symptoms are unchanged. rn 12/03 06:53 04:35 11/30/2019 14:47 Transfer ordered to Psych Facility. Diagnosis is Suicidal lp1 ideations. Reason for transfer: Higher level of care. Accepting physician is . Condition is Stable. Problem is new. Symptoms are unchanged. ps1
--- NOTE | 2019-11-30 15:25 | EKG ---
Test Date: 2019-11-30 Test Time: 11:58:51 Clinical Partner: JING MEASUREMENT RESULTS: Intervals: Rate: 84 HI: 204 QRSD: 82 QT: 364 QTc: 430 [place]: P: 43 HI: 204 QRS: 43 T: 53 INTERPRETIVE STATEMENTS: Normal sinus rhythm Normal ECG No previous ECG available for comparison Electronically Signed On 11-30-19 15:24:41 BEE WORKER by Deep Roberts
[2019-11-30] MEDS ORDERED: CETIRIZINE HCL 5 MG TABLET ONE (19:36)
[2019-11-30] MEDS ORDERED: PROMETHAZINE 25 MG TABLET ONE (20:37)
[2019-12-01] MEDS ORDERED: HYDROCODONE/CHLORPHEN 5 ML/OSYR ONE (15:43)
[2019-12-01] MEDS ORDERED: PROMETHAZINE 25 MG TABLET ONE (20:04)
[2019-12-01] MEDS ORDERED: INSULIN -REGULAR HUMAN 50 UNIT/0.5 ML ML ONE (21:00)
[2019-12-02] MEDS ORDERED: HYDROCODONE/CHLORPHEN 5 ML/OSYR ONE ×2 (10:25→17:24)
[2019-12-02] MEDS ORDERED: ONDANSETRON 4 MG (ODT) TAB ONE (21:05)
[2019-12-02] MEDS ORDERED: QUETIAPINE 100MG TAB ONE (21:24)
[2019-12-03 07:13] VITALS: O2SAT 97
[2019-12-03 07:14] VITALS: BP 138/87; TEMP 98.2
== END 2019-12-03 06:53 ==
LOC: ER 11:13
DX: R45.851 Suicidal ideations (principal); Z88.0 Allergy status to penicillin
CPT/HCPCS: 36415; 80048; 80076; 80307; 80320; 80329; 81003; 85025; 85610; 85730; 93005; 99285; Q0169